=== PATIENT | male | born 1990 | race Caucasian/White ===

== ENCOUNTER 2023-11-01 09:50 | Emergency (ER) | payer OTHER ==
[~2023-11-01] VITALS: Ht 180.3 cm; Wt 114.8 kg
[2023-11-01 10:07] VITALS: BP 111/68; PULSE 74; RESP 18; TEMP 98.4; O2SAT 98
[2023-11-01 12:37] VITALS: BP 119/81; PULSE 69; RESP 20; TEMP 98.7; O2SAT 95
== END 2023-11-01 12:40 | disposition home or self-care (01) ==
LOC: MED 09:50
DX: F20.9 Schizophrenia, unspecified (principal); Z79.899 Other long term (current) drug therapy
CPT/HCPCS: 99281